=== PATIENT | female | born 1980 | race Two or more races ===

== ENCOUNTER 2022-02-01 17:25 | Emergency (ER) | payer SELFPAY ==
[~2022-02-01] VITALS: Ht 162.6 cm; Wt 72.8 kg
[2022-02-01] MEDS ORDERED: methylPREDNISolone SOD SUCC PF 125 MG/2 ML VIAL. IV ONE (17:30)
[2022-02-01] MEDS ORDERED: diphenhydrAMINE 50 MG/ML VIAL IVP ONE (17:30)
[2022-02-01] MEDS ORDERED: FAMOTIDINE 20 MG/2 ML VIAL IVP ONE (17:30)
[2022-02-01] MEDS ORDERED: diphenhydrAMINE 50 MG/ML VIAL ONE (17:31)
[2022-02-01] MEDS ORDERED: FAMOTIDINE 20 MG/2 ML VIAL ONE (17:31)
[2022-02-01] MEDS ORDERED: methylPREDNISolone SOD SUCC PF 125 MG/2 ML VIAL. ONE (17:31)
--- NOTE | 2022-02-01 17:52 | PHYS DOC ---
Past Medical History Past Medical History: No Pertinent History Past Surgical History: Hysterectomy General Adult EDM: Chief Complaint: ALLERGIC REACTION HPI: HPI: Patient is a 41 year old female who presents with hives across her face and upper chest, throat swelling, difficulty breathing after eating pork rinds this afternoon. She states that she had 1 piece of shrimp earlier this morning, around 0900. Patient has never had food allergies in the past. She states the last time she had pork rinds was about 2 years ago. She had a few bites of the pork rinds, and noticed that her face was itchy. When she went and looked in the mirror, she saw hives across her cheeks and neck. Patient attempted to take tablet of Benadryl at home, and had difficulty swallowing, so she decided to call 911. Patient denies abdominal pain, nausea, vomiting. Review of Systems: Review of Systems: Constitutional: Denies fever, chills or generalized weakness Eyes: Denies change in visual acuity, visual field deficits or discharge HENT: See HPI Respiratory: See HPI Cardiovascular: Denies chest pain, palpitations or edema GI: See HPI : Denies dysuria or hematuria Musculoskeletal: Denies back pain or joint pain Integument: See HPI Neurologic: Denies headache, focal weakness or sensory changes Heart Score: C/O Chest Pain: No Current Medications: Current Medications Medications (Trade) Dose Ordered Sig/Jareth Start Time Stop Time Status Last Admin Dose Admin Diphenhydramine HCl (Benadryl) 25 mg 1X ONCE 02/01/22 17:30 02/01/22 17:38 DC 02/01/22 17:38 25 MG Famotidine (Pepcid Vial) 20 mg 1X ONCE 02/01/22 17:30 02/01/22 17:38 DC 02/01/22 17:37 20 MG Methylprednisolone Sodium Succinate (SOLU-Medrol 125MG VIAL) 125 mg 1X ONCE 02/01/22 17:30 02/01/22 17:38 DC 02/01/22 17:39 125 MG Allergies: Allergies: Allergies Coded Allergies Type Severity Reaction Last Updated Verified No Known Drug Allergies 02/01/22 No Physical Exam: PE: Constitutional: Well developed, well nourished, no acute distress, non-toxic appearance. HENT: Normocephalic, atraumatic, bilateral external ears normal, oropharynx moist, no oral exudates, oropharyngeal swelling appreciated, no macroglossia, nose normal. Eyes: EOMI, conjunctiva normal, no discharge. Neck: Normal range of motion, no stridor. Cardiovascular: Heart rate regular rhythm, no murmur. Lungs & Thorax: Equal thoracic expansion, no increased work of breathing appreciated, bilateral breath sounds clear to auscultation. Abdomen: Bowel sounds normal, soft, no tenderness, no masses, no pulsatile masses. Skin: Warm, dry, no erythema, no rash. Neurologic: Alert and oriented x4, no focal deficits noted. Current Patient Data: Vital Signs: Vital Signs Date Time Temp Pulse Resp B/P (MAP) Pulse Ox O2 Delivery O2 Flow Rate FiO2 02/01/22 19:13 90 132/74 (93) 100 Room Air 02/01/22 18:30 87 140/85 (103) 100 Room Air 02/01/22 18:15 86 140/85 (103) 100 Room Air 02/01/22 17:45 91 159/85 (109) 100 Room Air 02/01/22 17:45 99.1 88 18 172/86 (114) 100 Room Air 99.1 Course & Med Decision Making: Course & Med Decision Making Pertinent Labs and Imaging studies reviewed. (See chart for details) Patient is a 41-year-old female who presents with what appears to be an allergic reaction to food consumed today. It is unclear whether this is a delayed reaction from shrimp eaten in the morning or a more immediate reaction from pork rind snack. In either case, patient responded very well to Benadryl, Pepcid and Solu-Medrol administration. She is advised to avoid both of these foods going forward. Discussed follow-up with primary care as well as environmental journalist, if she so chooses. Strict return precautions were provided. Instruction and e- prescription for EpiPen's was also provided. Patient understands and is agreeable to discharge plan Yinka Disclaimer: Yinka Disclaimer: This electronic medical record was generated, in whole or in part, using a voice recognition dictation system. Departure Departure Impression: Primary Impression: Allergic reaction to food Qualified Codes: T78.1XXA - Other adverse food reactions, not elsewhere classified, initial encounter Disposition: HOME / SELF CARE / HOMELESS Condition: IMPROVED Patient Instructions: Epinephrine injection (Auto-injector), Food Allergy, [id number] Additional Instructions: [facility] Office OR call the phone number on the back of your insurance card and ask for allergists in your preferred area. EMERGENCY DEPARTMENT GENERAL DISCHARGE INSTRUCTIONS Thank you for coming to [facility] Emergency Department (ED) today and trusting us with you care. We trust that you had a positive experience in our Emergency Department. If you wish to speak to the department management, you may call the director at . YOUR FOLLOW UP INSTRUCTIONS ARE FOLLOWS: 1. Follow up with your primary care doctor. If you do not have a primary doctor, please ask for a resource list of physicians or clinics that may be able to assist you with follow up care. 2. The emergency provider has interpreted your imaging studies, if any were ordered. The radiology environmental safety specialist also reviewed them. If there is a change in the findings, you will be notified in 48 hours when at all possible. 3. If a lab test or culture has been done, your results will be reviewed and you will be notified if you need a change in treatment. 4. Follow instructions verbalized to you and refer to the printouts if needed. ADDITIONAL INSTRUCTIONS AND INFORMATION: 1. Your care today has been supervised by a physician who is specially trained in emergency care. Many problems require more than one evaluation for a complete diagnosis and treatment. We recommend that you schedule your follow up appointment as recommended to ensure complete treatment of you illness or injury. If you are unable to obtain follow up care and continue to have a problem, or if your condition worsens, we recommend that you return to the ED. 2. We are not able to safely determine your condition over the phone nor are we able to give sound medical advice over the phone. For these safety reasons, if you call for medical advice we will ask you to come to the ED for further evaluation. 3. If you have any questions regarding these discharge instructions please call the ED at . SAFETY INFORMATION: In the interest of safety, wellness, and injury prevention; we encourage you to wear your seat belt, if you smoke; quite smoking, and we encourage family to use a protective helmet for bicycling and other sporting events that present an increased risk for head injury. IF YOUR SYMPTOMS WORSEN OR NEW SYMPTOMS DEVELOP, OR YOU HAVE CONCERNS ABOUT YOUR CONDITION; OR IF YOUR CONDITION WORSENS WHILE YOU ARE WAITING FOR YOUR FOLLOW UP APPOINTMENT; EITHER CONTACT YOUR PRIMARY CARE DOCTOR, THE PHYSICIAN WHOSE NAME AND NUMBER YOU WERE GIVEN, OR RETURN TO THE ED IMMEDIATELY. Scripts Epinephrine (EPIPEN 2-TIFFANY) 0.3 Mg/0.3 Ml Auto.injct 1 SYR IM ONCE for 1 Day, #[address] the tip of the injector perpendicular against the middle of your outer thigh and pressed firmly until you hear a click. Hold firmly in place for 3 seconds. Prov: LAURI LYON 02/01/22 LAURI LYON Feb 01, 2022 17:52
[2022-02-01] MEDS ORDERED: EPIPEN 2-P0.3 MG/0.3 IM (19:07)
[2022-02-01 19:13] VITALS: BP 132/74
== END 2022-02-01 19:15 | disposition home or self-care (01) ==
LOC: ER 17:25
DX: T78.1XXA Other adverse food reactions, not elsewhere classified, initial encounter (principal); X58.XXXA Exposure to other specified factors, initial encounter; Y93.89 Activity, other specified; Y92.89 Other specified places as the place of occurrence of the external cause; Y99.8 Other external cause status
CPT/HCPCS: 96374; 96375; 99284; J1200; J2930; J3490